=== PATIENT | male | born 1980 | race Caucasian/White ===

== ENCOUNTER 2021-01-31 12:57 | Emergency (ER) | payer BC, SELFPAY ==
[2021-01-31 12:58] VITALS: BP 149/79; PULSE 94; RESP 20; TEMP 36.9; O2SAT 99; BMI 41.8
[2021-01-31 13:05] VITALS: BP 149/79; PULSE 94; RESP 20; TEMP 36.9; O2SAT 99; BMI 41.7
--- NOTE | 2021-01-31 13:33 | HMH.EDUTC ---
[facility] [place] Disposition Clinical Impression: Migraine Qualifiers: Migraine type: unspecified Status migrainosus presence: without status migrainosus Intractability: not intractable Qualified Code(s): G43.909 - Migraine, unspecified, not intractable, without status migrainosus Disposition: Home, Self-Care Condition on Discharge: Good Instructions: Migraine -- Adult, DI for Migraine Additional Instructions: Go home and lay down and sleep off remaining of Migraine Headache Follow up with your Family Doctor for further evaluation and medication for Migraine control if needed Return if needed Straight to ER if worse headache of your life or any life threatening symptoms Referrals: Kandi Felix [Primary Care Provider] - As needed Forms: Work/School Release Time of Disposition: 14:26 Medical Decision Making - Nino Inquiry Pt receiving controlled substance: No Nino was queried for this patient: No Vital Signs: 01/31/21 12:58 01/31/21 13:05 01/31/21 14:32 Temperature 98.4 F 98.4 F 98.4 F Temperature Source Oral Oral Pulse Rate 94 H Pulse Rate [Left Radial] 94 H 94 H Respiratory Rate 20 20 20 Blood Pressure 149/79 H Blood Pressure [Right Arm] 149/79 H 149/79 H Blood Pressure Mean [Right Arm] 102 102 Blood Pressure Source [Right Arm] Automatic Cuff Automatic Cuff Blood Pressure Position [Right Arm] Sitting Sitting 02 Sat by Pulse Oximetry 99 99 Oxygen Delivery Method Room Air Room Air Orders (Tests/Meds): ED MEDICATIONS Discontinued Medications Generic Name Dose Route Start Last Admin Trade Name Freq PRN Reason Stop Dose Admin Diphenhydramine HCl 25 mg 01/31/21 13:49 01/31/21 14:05 Diphenhydramine 50mg/Ml Vial IM 01/31/21 13:50 25 mg ONCE ONE Administration Ketorolac Tromethamine 30 mg 01/31/21 13:49 01/31/21 14:05 Ketorolac 60mg/2ml Vial IM 01/31/21 13:50 30 mg ONCE ONE Administration Ondansetron HCl 4 mg 01/31/21 13:49 01/31/21 14:05 Ondansetron 4mg Odt SL 01/31/21 13:50 4 mg ONCE ONE Administration Medical Decision Narrative: Medication discussed with pharmacy Discussed transfer to ED if no improvement for Head CT and Patient states that medication is helping with headache states that feels much better and almost gone Declined transfer and states that he will return if worse headache of his life and/or Follow up with PCP if headache returns Patient no distress laughing and talking with mother as he left [facility] [place] HPI - General Stated complaint: migraine, nausea Time Seen by Provider: 01/31/21 13:33 Mode of Arrival: Ambulatory Source of Information: Patient Limitations: No Limitations Description of Symptoms (Recalled from Triage Doc. by RN): PATIENT C/O HEADACHE WITH NAUSEA SINCE LAST NIGHT HEENT Symptoms (Recalled from RN notes): Yes Resp Symptoms (Recalled from RN notes): No Skin Symptoms (Recalled from RN notes): No MS Symptoms (Recalled from RN notes): No Functional Status (Recalled from RN notes): WNL - History of Present Illness Provider Complaint: Patient states that he has had headaches in the past States last night he started having headache States that he took Ibuprofen and it helped and he laid down and slept States that this morning he woke up and it was back so he took some excedrin around 630 but hasnt helped States that at times it make him feel nauseous States that he still has headache and came in to see if he can get something for it Denies that this is worse headache of life, denies vision changes, and denies numbness - Related Data Allergies Allergy/AdvReac Type Severity Reaction Status Date / Time No Known Allergies Allergy Verified 01/31/21 13:30 - Worker's Comp Is this a Worker's Comp case?: No [facility] History - Hepatitis A Screen Drug use history?: No High risk sexual behaviors?: No History of sexually transmitted infection?: No Currently employed?: No Childcare worker?: No Do you have indoor plumbing?: Yes Do you hav
[2021-01-31 14:32] VITALS: BP 149/79; PULSE 94; RESP 20; TEMP 36.9; O2SAT 99
== END 2021-01-31 14:33 | disposition home or self-care (01) ==
PROVIDERS: Emergency Provider Nurse Practitioner; PCP Nurse Practitioner Family
DX: G43.909 Migraine, unspecified, not intractable, without status migrainosus (principal)
CPT/HCPCS: 96372; 99202; G0463

== ENCOUNTER 2021-09-19 11:58 | Emergency (ER) | payer BC, SELFPAY ==
[2021-09-19 13:20] VITALS: BP 166/111; PULSE 92; RESP 20; TEMP 37; O2SAT 96; BMI 41.3
--- NOTE | 2021-09-19 14:07 | HMH.EDUTC ---
[facility] [place] Disposition Clinical Impression: Tendinopathy of right shoulder Right shoulder pain Qualifiers: Chronicity: acute Qualified Code(s): M25.511 - Pain in right shoulder Disposition: Home, Self-Care Condition on Discharge: Good Instructions: Shoulder Tendinopathy, DI for Shoulder Pain Additional Instructions: Rest the extremity. Go home and rest. It would be best if you rested tomorrow too. Don't start the oral steroids until tomorrow, since you had the shot here today. Follow up with Dr. Perez (orthopedics). I put in a referral but you need to call his office and schedule an appointment. Follow up with your regular doctor. GO TO THE ER FOR ANY WORSENING SYMPTOMS Prescriptions: Cyclobenzaprine HCl [Cyclobenzaprine 10mg Tab] 10 mg PO BIDP PRN #20 tab PRN Reason: Muscle Spasm Transmission Status: Received by [id number] methylPREDNISolone [Medrol] 4 mg PO DIRECTED 6 Days #21 packet Transmission Status: Received by [id number] Referrals: Kandi Felix [Primary Care Provider] - Wm Perez MD [Staff Physician] - Forms: Work/School Release Time of Disposition: 14:18 Medical Decision Making - Medical Records Medical records reviewed: No: I reviewed the patient's medical records. - Nino Inquiry Pt receiving controlled substance: No Vital Signs: 09/19/21 13:20 09/19/21 14:20 Temperature 98.6 F 98.3 F Temperature Source Oral Pulse Rate 90 Pulse Rate [Left Brachial] 92 H Respiratory Rate 20 20 Blood Pressure 138/90 Blood Pressure [Left Arm] 166/111 H Blood Pressure Mean [Left Arm] 129 Blood Pressure Source [Left Arm] Automatic Cuff Blood Pressure Position [Left Arm] Sitting 02 Sat by Pulse Oximetry 96 Oxygen Delivery Method Room Air Orders (Tests/Meds): ED MEDICATIONS Discontinued Medications Generic Name Dose Route Start Last Admin Trade Name Freq PRN Reason Stop Dose Admin Ketorolac Tromethamine 60 mg 09/19/21 14:18 09/19/21 14:20 Ketorolac 60mg/2ml Vial IM 09/19/21 14:19 60 mg ONCE ONE Administration Methylprednisolone Sodium Succinate 125 mg 09/19/21 14:18 09/19/21 14:20 Methylprednisolone Sod Succ 125mg Vial IM 09/19/21 14:19 125 mg ONCE ONE Administration [facility] [place] HPI - General Stated complaint: right shoulder pain, arm ache Time Seen by Provider: 09/19/21 14:07 Mode of Arrival: Ambulatory Source of Information: Patient Limitations: No Limitations Description of Symptoms (Recalled from Triage Doc. by RN): PATIENT C/O RIGHT SHOULDER PAIN THAT RADIATES DOWN ARM WITH OCCASIONAL NUMBNESS TO ARM/HAND X 5-6 DAYS. DESCRIBES PAIN ACHEY, NO KNOWN INJURY HEENT Symptoms (Recalled from RN notes): No Resp Symptoms (Recalled from RN notes): No Skin Symptoms (Recalled from RN notes): No MS Symptoms (Recalled from RN notes): Yes Functional Status (Recalled from RN notes): WNL - History of Present Illness Provider Complaint: He states that for the past 1 week he has had right shoulder pain that is worse when he goes to bed at night. He has had some numbness and tingling of his right hand at times and some elbow pain also. He denies any known injury. He denies any chest pain. - Related Data Previous Rx's Medication Instructions Recorded Cyclobenzaprine HCl 10 mg PO BIDP PRN #20 tab 09/19/21 [Cyclobenzaprine 10mg Tab] methylPREDNISolone [Medrol] 4 mg PO DIRECTED 6 Days #21 09/19/21 packet Allergies Allergy/AdvReac Type Severity Reaction Status Date / Time No Known Allergies Allergy Verified 01/31/21 13:30 - Worker's Comp Is this a Worker's Comp case?: No [facility] History - Hepatitis A Screen Drug use history?: No High risk sexual behaviors?: No History of sexually transmitted infection?: No Currently employed?: No Childcare worker?: No Do you have indoor plumbing?: Yes Do you have electricity?: Yes Attestation statement:: This patient has been screened for Hepatitis A risk factors.
[2021-09-19 14:20] VITALS: BP 138/90; PULSE 90; RESP 20; TEMP 36.8; O2SAT 96
== END 2021-09-19 14:36 | disposition home or self-care (01) ==
PROVIDERS: Emergency Provider Nurse Practitioner Family; PCP Nurse Practitioner Family
DX: M67.911 Unspecified disorder of synovium and tendon, right shoulder (principal)
CPT/HCPCS: 96372; 99202; G0463

== ENCOUNTER 2021-10-30 17:00 | Outpatient (RCR) | payer BC, SELFPAY | END 2021-11-27 09:16 | disposition home or self-care (01) | LOC: PT.CARL 17:00 | PROVIDERS: PCP Nurse Practitioner Family; Visit Provider Nurse Practitioner | DX: M25.511 Pain in right shoulder (principal) | CPT/HCPCS: 97010; 97012; 97014; 97110; 97140; 97163; G0283 ==

== ENCOUNTER 2022-10-08 10:20 | Emergency (ER) | payer BC, SELFPAY ==
--- NOTE | 2022-10-08 11:40 | EXP.UTC ---
Discharge Plan Disposition Patient Disposition: Home, Self-Care Condition: Good Prescriptions Prescriptions: New amoxicillin [amoxicillin] 875 mg tablet 875 mg PO Q12H Qty: 20 0RF benzonatate [benzonatate] 100 mg capsule 100 mg PO TIDP PRN (Reason: Cough) Qty: 30 0RF methylprednisolone 4 mg Tablets,Dose Pack 4 mg PO DIRECTED Qty: 21 0RF No Action cyclobenzaprine 10 MG tablet 10 mg PO BIDP PRN (Reason: Muscle Spasm) Qty: 20 0RF methylprednisolone 4 MG tablets,dose pack 4 mg PO DIRECTED 6 Days Qty: 21 0RF Referrals Follow up/Referrals: Kandi Felix [Primary Care Provider] - See instructions Activity Restrictions/Add. Instructions Additional Instructions/Restrictions: Drink plenty of fluids. Take tylenol or ibuprofen for pain or fever. Take the medications as directed. Follow up with your regular doctor. GO TO THE ER FOR ANY WORSENING SYMPTOMS Clinical Impressions Clinical Impression: Strep throat Stand Alone Forms Stand Alone Forms: Work/School Release Instructions Patient Instructions: Strep Throat, DI for Strep Throat Discharge ED Provider: Timothy Adkins [facility] General Stated complaint: possible strep Time Seen by Provider: 10/08/22 11:39 History of Present Illness Provider Complaint: He has had a sore throat since yesterday. Both his and his daughter tested positive for strep throat this morning. Related Data Previous Rx's Medication Instructions Recorded cyclobenzaprine 10 mg tablet 10 mg PO BIDP PRN Muscle Spasm #20 09/19/21 tabs methylprednisolone 4 mg tablets in 4 mg PO DIRECTED 6 days #21 09/19/21 a dose pack packets amoxicillin 875 mg tablet 875 mg PO Q12H #20 tabs 10/08/22 benzonatate 100 mg capsule 100 mg PO TIDP PRN Cough #30 caps 10/08/22 methylprednisolone 4 mg tablets in 4 mg PO DIRECTED #21 tabs 10/08/22 a dose pack Allergies Allergy/AdvReac Type Severity Reaction Status Date / Time No Known Allergies Allergy Verified 10/08/22 12:05 [facility] Social History Smoking Status: Never smoker alcohol intake: never current occupational status: other Travel in the last 8 weeks: None ROS Obtained: Yes All systems reviewed & no additional complaints except as documented Constitutional Constitutional: Reports chills and Reports fever(s) Eyes Eyes: Denies eye discharge ENT Ears, Nose, Mouth, and Throat: Reports as per HPI Cardiovascular Cardiovascular: Denies chest pain Respiratory Respiratory: Denies chest congestion and Reports cough Gastrointestinal Gastrointestingal: Reports nausea; Denies abdominal pain, constipation, cramping, diarrhea or vomiting Musculoskeletal Musculoskeletal: Denies arthralgias Integumentary/Breasts Skin/Breast: Denies rash Neurologic Neurologic: Denies paresthesias Physical Exam General General appearance: alert and in no apparent distress Head Head exam: atraumatic, normocephalic and normal inspection Eye Eye exam: Present normal appearance, PERRL and EOMI ENT ENT exam: Present mucous membranes moist and normal external ear exam Expanded ENT Exam TM/Canal exam: Bilateral TM: erythema and bulging Nose exam: Absent sinus tenderness Mouth exam: Present normal external inspection; Absent drooling Teeth exam: Present normal inspection Throat exam: Present tonsillar erythema, tonsillomegaly and tonsillar exudate Neck Neck exam: Present normal inspection, full ROM and trachea midline; Absent tenderness, meningismus or lymphadenopathy Chest Chest inspection: Present normal inspection and symmetric chest wall rise; Absent tenderness Respiratory Respiratory exam: Present normal lung sounds bilaterally; Absent respiratory distress, wheezes or stridor Cardiovascular Cardiovascular exam: Present regular rate and normal rhythm; Absent systolic murmur or diastolic murmur Abdominal Exam Abdominal exam: Present soft and normal bowel
[2022-10-08 11:55] LABS: UTC Strep Screen (Rapid) Positive (Negative)
[2022-10-08 11:56] LABS: UTC Influenza A Antigen Negative (Negative); UTC Influenza B Antigen Negative (Negative)
[2022-10-08 12:01] VITALS: BP 131/86; PULSE 102; RESP 18; TEMP 37.2; O2SAT 99; BMI 40.6
[2022-10-08 12:05] VITALS: BP 131/86; PULSE 102; RESP 18; TEMP 37.2
== END 2022-10-08 12:06 | disposition home or self-care (01) ==
PROVIDERS: Emergency Provider Nurse Practitioner Family; PCP Nurse Practitioner Family
DX: J02.0 Streptococcal pharyngitis (principal)
CPT/HCPCS: 87804; 87880; 99212; G0463

== ENCOUNTER 2023-11-11 16:36 | Emergency (ER) | payer OTHER, SELFPAY ==
[2023-11-11 17:35] VITALS: BP 138/87; PULSE 94; RESP 18; TEMP 37.6; O2SAT 97; BMI 38.6
--- NOTE | 2023-11-11 18:02 | EXP.UTC ---
Discharge Plan Disposition Patient Disposition: Home, Self-Care Condition: Good Prescriptions Prescriptions: New azithromycin 250 mg tablet See Rx Instructions .ROUTE .COMPLEX Qty: 6 0RF Rx Instructions: For 250 mg dose pack: take 500 mg today (day 1), then 250 mg for 4 days (days 2-5) [id number] [Bromfed DM] 2-30-10 mg/5 mL syrup 10 ml PO Q6H PRN (Reason: cold symptoms) Qty: 200 0RF Referrals Follow up/Referrals: Kandi Felix [Primary Care Provider] - See instructions Activity Restrictions/Add. Instructions Additional Instructions/Restrictions: Follow up with PCP if no better in 48 hours. Clinical Impressions Clinical Impression: Influenza due to influenza virus, type B, Acute lower respiratory infection Stand Alone Forms Stand Alone Forms: Work/School Release Instructions Patient Instructions: Acute Bronchitis, DI for Influenza -- Adult Discharge ED Provider: Shanae Marshall [facility] [place] HPI General Stated complaint: congestion, cough, upper respitory, st, adames Mode of Arrival: Ambulatory Source of Information: Patient Limitations: No Limitations Time Seen by Provider: 11/11/23 18:01 Description of Symptoms (Recalled from Triage Doc. by RN): sinus infection, congestion, and ADAMES HEENT Symptoms (Recalled from RN notes): Yes Resp Symptoms (Recalled from RN notes): No Skin Symptoms (Recalled from RN notes): No MS Symptoms (Recalled from RN notes): No Functional Status (Recalled from RN notes): n/a History of Present Illness Provider Complaint: Pt reports that he has had clear sinus drainage, cough, fever, and body aches for the last 2 days. He Related Data Previous Rx's Medication Instructions Recorded azithromycin 250 mg tablet See Rx Instructions PO .COMPLEX #6 11/11/23 tabs rctpsdwiiqosske-jcvufkqjczwpwjv-WJ 10 ml PO Q6H PRN cold symptoms 11/11/23 2 mg-30 mg-10 mg/5 mL oral syrup #200 mL (Bromfed DM) Allergies Allergy/AdvReac Type Severity Reaction Status Date / Time No Known Allergies Allergy Verified 11/11/23 17:33 Worker's Comp Is this a Worker's Comp case?: No [facility] Disclaimer: The information contained in this section may have been updated after the patient was seen, as this information can be updated by other users. Social History Smoking Status: Never smoker alcohol intake: never current occupational status: other Travel in the last 8 weeks: None ROS Obtained: Yes All systems reviewed & no additional complaints except as documented Constitutional Constitutional: Reports system reviewed and no additional complaints, except as documented, Reports body ache, Reports fatigue, Reports fever(s), Reports headache(s) and Reports malaise Eyes Eyes: Reports system reviewed and no additional complaints, except as documented ENT Ears, Nose, Mouth, and Throat: Reports system reviewed and no additional complaints, except as documented, Reports headache(s), Reports nasal congestion, Reports nasal discharge, Reports sinus pressure and Reports sore throat Cardiovascular Cardiovascular: Reports system reviewed and no additional complaints, except as documented Respiratory Respiratory: Reports system reviewed and no additional complaints, except as documented and Reports cough Gastrointestinal Gastrointestingal: Reports system reviewed and no additional complaints, except as documented Genitourinary Male Genitourinary: Reports system reviewed and no additional complaints, except as documented Musculoskeletal Musculoskeletal: Reports system reviewed and no additional complaints, except as documented Integumentary/Breasts Skin/Breast: Reports system reviewed and no additional complaints, except as documented Neurologic Neurologic: Reports system reviewed and no additional complaints, except as documented and Reports headache(s) Endocrine Endocrine: Reports system reviewed and no additional complaints, except a
[2023-11-11 18:24] LABS: UTC Influenza A Antigen Negative (Negative); UTC Influenza B Antigen Positive (Negative)
[2023-11-11 18:49] VITALS: BP 138/87; PULSE 94; RESP 18; TEMP 37.6; O2SAT 97
== END 2023-11-11 18:49 | disposition home or self-care (01) ==
PROVIDERS: Emergency Provider Nurse Practitioner Family; PCP Nurse Practitioner Family
DX: J10.1 Influenza due to other identified influenza virus with other respiratory manifestations (principal); J20.9 Acute bronchitis, unspecified; R51.9 Headache, unspecified; R50.9 Fever, unspecified; R05.9 Cough, unspecified; R09.81 Nasal congestion; R07.0 Pain in throat; M79.18 Myalgia, other site; R53.83 Other fatigue
CPT/HCPCS: 87635; 87804; 99212; 99214; G0463

== ENCOUNTER 2024-01-21 17:51 | Emergency (ER) | payer OTHER, SELFPAY ==
[2024-01-21 18:10] VITALS: BP 125/74; PULSE 120; RESP 21; TEMP 37.5; O2SAT 96; BMI 38.0
[2024-01-21 18:12] VITALS: BMI 38.0
--- NOTE | 2024-01-21 18:12 | XR_ITS ---
PROCEDURE INFORMATION: Exam: XR Chest Exam date and time: 01/21/2024 6:05 PM Age: 43 years old Clinical indication: Cough TECHNIQUE: Imaging protocol: Radiologic exam of the chest. Views: 2 views. COMPARISON: No relevant prior studies available. FINDINGS: Lungs: There is a consolidation of the peripheral left lung base which could reflect infection . Pleural spaces: No large effusion or pneumothorax. Heart/Mediastinum: No evidence of mediastinal widening or cardiac silhouette enlargement; the mediastinum and heart appear within normal limits for contour and size. Bones/joints: No evidence of acute osseous abnormalities within the visualized portions of the thoracic spine and ribs. Osseous structures appear appropriate for patient age. IMPRESSION: There is a consolidation of the peripheral left lung base which could reflect infection .
[2024-01-21 18:49] LABS: UTC Influenza A Antigen Negative (Negative); UTC Influenza B Antigen Negative (Negative)
--- NOTE | 2024-01-21 18:58 | ED_ITS ---
Discharge Plan Disposition Patient Disposition: Home, Self-Care Condition: Good Prescriptions Prescriptions: No Action promethazine-DM 6.25-15 mg/5 mL syrup 5 ml PO Q4-6H PRN (Reason: cough) Qty: 118 0RF albuterol sulfate 90 mcg/actuation HFA aerosol inhaler 2 puff inhalation Q4-6H PRN (Reason: shortness of breath or wheezing) Qty: 8.5 1RF prednisone 20 mg tablet 20 mg PO BID 5 Days Qty: 10 0RF levofloxacin 500 mg tablet 500 mg PO DAILY 7 Days Qty: 7 0RF Referrals Follow up/Referrals: Kandi Felix [Primary Care Provider] - See instructions Activity Restrictions/Add. Instructions Additional Instructions/Restrictions: * Continue antibiotic Be sure to complete entire prescription even if feeling better * Monitor temp. Tylenol every 4 hours as needed and / or ibuprofen every 6 hours as needed ( As long as your primary care physician has told you that it ok to take both. For fever/aches/pains ER if no less than 101 despite Tylenol or Motrin * Humidifier/vaporizer or hot steamy shower * Inhaler every 4-6 hours as needed like we discussed. If unsure how to use it, ask pharmacist to demonstrate how. Should help open airways and improve cough, wheezing, and shortness of breath * Mucinex during the day for your cough and cough suppressant only at night. Be sure to drink lots of water. Insurance may not cover a prescriptions for mucinex. Might be cheaper to get 400mg tablets and take 2 tablet in the morning, mid-day and evening with lots of water. *Promethazine DM cough syrup will cause drowsiness. Use only at night. No driving, operating machinery or caring for small children after taking it *Continue steroid. Helps with inflammation therefore, cough and wheezing. Follow directions on the package. Reviewed side effects. Patient reports taking them before. Follow up IMMEDIATELY for new or worsening of symptoms OR no noticeable improvement over the next 48-72 hours. 911 immediately for any life threatening symptoms such as chest pain or difficulty breathing Clinical Impressions Clinical Impression: Acute lower respiratory infection Stand Alone Forms Stand Alone Forms: Work/School Release Instructions Patient Instructions: Pneumonia-Adult, Cough, DI for Pneumonia -- Adult Discharge ED Provider: Alejandrina Suresh [facility] [place] General Stated complaint: sent by yusef Sanchez pneumonia Mode of Arrival: Ambulatory Source of Information: Patient Limitations: No Limitations Time Seen by Provider: 01/21/24 19:02 Description of Symptoms (Recalled from Triage Doc. by RN): Pt was seen by Cora Franklin and is being treated for pneumonia. Pt's symptoms are chest congestion, fever, body aches, and feels hard to take a deep breath. (RA o2 was 96%) HEENT Symptoms (Recalled from RN notes): Yes Resp Symptoms (Recalled from RN notes): No Skin Symptoms (Recalled from RN notes): No MS Symptoms (Recalled from RN notes): No Functional Status (Recalled from RN notes): n/a History of Present Illness Provider Complaint: Patient states that he was seen earlier today in [facility] [address] and this morning and was seen and treated for Pneumonia States that he has been taking his medication and he has still continued to have chills, fever, feeling hot and flush at times and hurts when he takes a deep breath States that he spoke with the physician staff sonographer and they said for him to come in and get a Respiratory Panel done since he was concerned with flu and COVID 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 they sent in for him and started it at home Related Data Previous Rx's Medication Instructions Recorded albuterol sulfate 90 mcg/actuation 2 puff inhalation Q4-6H PRN 01/21/24 aerosol inhaler shortness of breath or wheezing #8.5 grams levofloxacin 500 mg tablet 500 mg PO DAILY 7 days #7 tabs 01/21/24 prednisone 20 mg tablet 20 mg PO BID 5 days #10 tabs 01/21/24 promethazine-DM 6.25 mg-15 mg/5 mL 5 ml PO Q4-6H PRN cough #118 mL 01/21/24 oral syrup Allergies Allergy/AdvReac Type Severity Reaction Status Date / Time No Known Allergies Allergy Verified 01/21/24 18:30 Worker's Comp Is this a Worker's Comp case?: No [facility] Disclaimer: The information contained in this section may have been updated after the patient was seen, as this information can be updated by other users. Medical History (Updated 01/21/24 @ 19:23 by Alejandrina Suresh APRN) Influenza due to influenza virus, type B Migraine Right shoulder pain Strep throat Tendinopathy of right shoulder Surgical History No significant past surgical history Social History Smoking Status: Never smoker alcohol intake: never current occupational status: other Travel in the last 8 weeks: None ROS Obtained: Yes All systems reviewed & no additional complaints except as documented and Yes Systems reviewed as appropriate & no additional complaints except as documented Constitutional Constitutional: Reports system reviewed and no additional complaints, except as documented and Reports as per HPI ENT Ears, Nose, Mouth, and Throat: Reports system reviewed and no additional complaints, except as documented and Reports as per HPI Cardiovascular Cardiovascular: Reports system reviewed and no additional complaints, except as documented and Reports as per HPI Respiratory Respiratory: Reports system reviewed and no additional complaints, except as documented, Reports as per HPI, Reports shortness of breath (at times with cou ghing), Reports chest congestion, Reports pain on inspiration and Reports pain with cough Gastrointestinal Gastrointestingal: Reports system reviewed and no additional complaints, except as documented and as per HPI Physical Exam General General appearance: alert and in no apparent distress ENT ENT exam: Present mucous membranes moist Respiratory Respiratory exam: Present normal lung sounds bilaterally and wheezes (mild scattered ); Absent respiratory distress Cardiovascular Cardiovascular exam: Present regular rate, normal rhythm and tachycardia Neurological Exam Neurological exam: Present alert, oriented X3 and normal gait Medical Decision Making Nino Inquiry Pt receiving controlled substance: No Nino was queried for this patient: No Vital Signs: 01/21/24 18:10 Temperature 99.5 F Temperature Source Oral Pulse Rate [Right Radial] 120 H Respiratory Rate 21 Blood Pressure [Right Arm] 125/74 Blood Pressure Mean [Right Arm] 91 Blood Pressure Source [Right Arm] Automatic Cuff Blood Pressure Position [Right Arm] Sitting 02 Sat by Pulse Oximetry 96 Oxygen Delivery Method Room Air Lab Data Lab results reviewed: Yes I reviewed the patient's lab results. Lab Results 01/21/24 18:26: Influenza Type A Ag Negative, Influenza Type B Ag Negative Orders (Tests/Meds): ORDERS Category Date Time Status Chest XR 2 view (NOT portable) [XR chest 2V] Stat Exams 01/21/24 18:12 Completed Radiology Data #1: IMPRESSION: There is a consolidation of the peripheral left lung base which could reflect infection . Medical Decision Narrative: Patient denies any worsening of SOA states that he has started his prescribed medication and has been taking it today wanting an URP and note for Work Discussed with patient that he got injection of steriods this am at the clinic and also started his oral prednisone that prednisone can make him feel hot and flushed Discussed patient with Physican staff sonographer for clinic and informed them of findings and patient will be dc'd home to wait on URP results and given strict return precautions to the Emergency room
[2024-01-21 19:29] VITALS: BP 125/74; PULSE 120; RESP 21; TEMP 37.5; O2SAT 96
[2024-01-21 19:38] LABS: Adenovirus,PCR Not Detected (NotDetected); Coronavirus 19, PCR Not Detected (NotDetected); Coronavirus 229E Not Detected (NotDetected); Coronavirus NL63 Not Detected (NotDetected); Coronovirus HKU1,PCR Not Detected (NotDetected); Human Metapneumovirus Not Detected (NotDetected); Influenza A, PCR Not Detected (NotDetected); Influenza AH1, 2009 Not Detected (NotDetected); Influenza AH1, PCR Not Detected (NotDetected); Influenza AH3,PCR Not Detected (NotDetected); Influenza B, PCR Not Detected (NotDetected); Parainfluenza 1, PCR Not Detected (NotDetected); Parainfluenza 2, PCR Not Detected (NotDetected); Parainfluenza 3, PCR Not Detected (NotDetected); Parainfluenza 4, PCR Not Detected (NotDetected); Respiratory Syncytial Virus Not Detected (NotDetected); Rhinovirus/Enterovirus Not Detected (NotDetected)
[2024-01-22 05:06] LABS: Coronavirus OC43 Detected (NotDetected)
== END 2024-01-21 19:28 | disposition home or self-care (01) ==
PROVIDERS: Emergency Provider Nurse Practitioner; PCP Nurse Practitioner Family
DX: J22 Unspecified acute lower respiratory infection (principal); B34.2 Coronavirus infection, unspecified; R07.1 Chest pain on breathing; R06.02 Shortness of breath; R50.9 Fever, unspecified
CPT/HCPCS: 71046; 87581; 87632; 87635; 87798; 87804; 99212; 99214; G0463

== ENCOUNTER 2024-01-26 15:59 | Emergency (ER) | payer OTHER, SELFPAY ==
[2024-01-26 16:00] VITALS: BP 146/92; PULSE 107; RESP 22; TEMP 37.1; O2SAT 98; BMI 37.3
--- NOTE | 2024-01-26 16:15 | PC.NURSE ---
DR MARTINEZ AT BEDSIDE
--- NOTE | 2024-01-26 16:21 | CT_ITS ---
PROCEDURE INFORMATION: Exam: CTA Chest With Contrast Exam date and time: 01/26/2024 5:08 PM Age: 43 years old Clinical indication: Pain; Left-sided; Additional info: Left chest wall pleuritic cp TECHNIQUE: Imaging protocol: Computed tomographic angiography of the chest with contrast. Exam focused on the arteries. 3D rendering (Not supervised by radiologist): MIP and/or 3D reconstructed images were created by the technologist. Radiation optimization: All CT scans at this facility use at least one of these dose optimization techniques: automated exposure control; mA and/or kV adjustment per patient size (includes targeted exams where dose is matched to clinical indication); or iterative reconstruction. Contrast material: ISOVUE 370; Contrast volume: 70 ml; Contrast route: INTRAVENOUS (IV); COMPARISON: CR XR CHEST 2V 01/21/2024 6:05 PM FINDINGS: Pulmonary arteries: There is fair opacification of the pulmonary arterial tree. No central pulmonary arterial filling defect is seen. Aorta: Unremarkable. No aortic aneurysm. No aortic dissection. Other arteries: Subsegmental vessels are not well evaluated due to technical factors. Lungs: Unremarkable. No consolidation. No masses. Pleural spaces: Unremarkable. No pneumothorax. No pleural effusion. Heart: Unremarkable. No cardiomegaly. No pericardial effusion. Lymph nodes: There are calcified mediastinal lymph nodes likely reflecting prior granulomatous disease. There are mildly prominent mediastinal lymph nodes which are nonenlarged. Gallbladder and bile ducts: The patient is status post cholecystectomy. Bones/joints: Unremarkable. No acute fracture. Soft tissues: Unremarkable. Other findings: Motion artifact mildly limits evaluation. IMPRESSION: 1. No central pulmonary arterial filling defect is seen. Subsegmental vessels are not well evaluated due to technical factors. 2. No dense parenchymal consolidation, pleural effusion, or pneumothorax.
--- NOTE | 2024-01-26 16:23 | HMH.EDCP ---
Discharge Plan Disposition Patient Disposition: Home, Self-Care Prescriptions Prescriptions: New cyclobenzaprine 10 mg tablet 10 mg PO TID PRN (Reason: muscle spasm) 5 Days Qty: 15 0RF ibuprofen 800 mg tablet 800 mg PO TID PRN (Reason: pain) 7 Days Qty: 20 0RF benzonatate 100 mg capsule 100 mg PO TID PRN (Reason: cough) 5 Days Qty: 20 0RF No Action promethazine-DM 6.25-15 mg/5 mL syrup 5 ml PO Q4-6H PRN (Reason: cough) Qty: 118 0RF albuterol sulfate 90 mcg/actuation HFA aerosol inhaler 2 puff inhalation Q4-6H PRN (Reason: shortness of breath or wheezing) Qty: 8.5 1RF prednisone 20 mg tablet 20 mg PO BID 5 Days Qty: 10 0RF levofloxacin 500 mg tablet 500 mg PO DAILY 7 Days Qty: 7 0RF Referrals Follow up/Referrals: Kandi Felix [Primary Care Provider] - See instructions Archana Castillo MD [Physician] - See instructions Activity Restrictions/Add. Instructions Additional Instructions/Restrictions: No evidence of pneumonia on your CT scan. As discussed it is strongly recommended that you stop smoking. Your symptoms are most likely consistent with musculoskeletal chest wall strain in the setting of cough. Muscle laxer anti-inflammatory medication have been prescribed in addition to another cough medicine. You may also take [id number] Sudafed and chlorpheniramine as needed for cough. Clinical Impressions Clinical Impression: Encounter for smoking cessation counseling, Acute exacerbation of chronic obstructive airways disease, Coronavirus infection, Chest wall muscle strain Discharge ED Provider: Karlie Grissom [facility] General Chief Complaint: Shortness of Breath/Dyspnea Stated Complaint: soa pnenomnia positive cough Time Seen by Provider: 01/26/24 16:11 Mode of Arrival: Family Vehicle Source of Information: Patient Limitations: No Limitations Description of Symptoms (Recalled from ER Triage Doc. by RN): Pt c/o SOA, productive cough, sore throat, and left lower rib pain with cough and movement. States he was seen last week by [facility] [place] and dx with possible pneumonia and started on ABX, cough syrup, steriod, and albuterol inhaler. States he was still feeling poor and came to [facility] the following day, had chest xray and told he had pneumonia. Pt states he just feels he is worsening and is feeling significant pain with inspiration and with cough & movement. History of Present Illness HPI narrative: Patient is a 43-year-old male presents today with persistent symptoms after 2 other physician visits prior today. States he started having symptoms 8 days ago when he started having sinus congestion and a little bit of a cough. Has a chronic history of smoking but no history of COPD. States by Friday he started feeling poorly went to his primary care doctor they started him on Levaquin and prednisone and albuterol and has been on that since that day started feeling worse that evening with a fever of 100.7 had comprehensive respiratory viral panel had a chest x-ray there was concern for possible left peripheral pneumonia he was already on Levaquin he has since completed that. States he is only getting worse with worsening left-sided chest discomfort particular with coughing or movement or touch. Denies any ongoing fevers. No lower extremity swelling hemoptysis history of DVT or PE or prolonged immobilizations. Patient continues to smoke even during this illness. He was positive for negative coronavirus several days ago. Related Data Previous Rx's Medication Instructions Recorded albuterol sulfate 90 mcg/actuation 2 puff inhalation Q4-6H PRN 01/21/24 aerosol inhaler shortness of breath or wheezing #8.5 grams levofloxacin 500 mg tablet 500 mg PO DAILY 7 days #7 tabs 01/21/24 prednisone 20 mg tablet 20 mg PO BID 5 days #10 tabs 01/21/24 promethazine-DM 6.25 mg-15 mg/5 mL 5 ml PO Q4-6H PRN cough #118 mL 01/21/24 oral syrup benzonatate 100 mg capsule 100 mg PO TID PRN cough 5 days #20 01/26/24 caps cyclobenzaprine 10 mg tablet 10 mg PO TID PRN muscle spasm 5 01/26/24 days #15 tabs ibuprofen 800 mg tablet 800 mg PO TID PRN pain 7 days #20 01/26/24 tabs Allergies Allergy/AdvReac Type Severity Reaction Status Date / Time No Known Allergies Allergy Verified 01/21/24 18:30 [facility] Disclaimer: The information contained in this section may have been updated after the patient was seen, as this information can be updated by other users. Medical History (Updated 01/26/24 @ 18:24 by Karlie Grissom MD) Influenza due to influenza virus, type B Migraine Right shoulder pain Strep throat Tendinopathy of right shoulder Surgical History No significant past surgical history Social History Smoking Status: Current every day smoker alcohol intake: never current occupational status: other Travel in the last 8 weeks: None ROS Obtained: Yes All systems reviewed & no additional complaints except as documented Physical Exam General General appearance: alert Respiratory Respiratory exam: Present other (Diffuse expiratory wheezing mild prolonged expiratory phase oxygen saturations normal on room air) Cardiovascular Cardiovascular exam: Present tachycardia (Heart rate 1 10-1 20 my evaluation) Neurological Exam Neurological exam: Present alert HEART Score HEART Score HEART Score assessment performed?: Yes History (anamnesis): Slightly suspicious ECG: Normal Age: 45-65 years Risk factors: 1-2 risk factors Troponin: </= normal limit HEART Score: 2 Critical Care Critical Care Time Critical Care Time: No Medical Decision Making Nino Inquiry Pt receiving controlled substance: No Vital Signs Vital Signs: 01/26/24 16:00 01/26/24 16:30 01/26/24 17:00 Temperature 98.8 F Temperature Source Oral Pulse Rate 105 H 103 H Pulse Rate [Left] 107 H Respiratory Rate 22 20 20 Blood Pressure 132/85 140/93 H Blood Pressure [Right Arm] 146/92 H Blood Pressure Mean 104 103 Blood Pressure Mean [Right Arm] 110 Blood Pressure Source [Right Arm] Automatic Cuff 02 Sat by Pulse Oximetry 98 97 96 Oxygen Delivery Method Room Air 01/26/24 18:27 Temperature 98.0 F Temperature Source Pulse Rate 85 Pulse Rate [Left] Respiratory Rate 20 Blood Pressure 135/87 Blood Pressure [Right Arm] Blood Pressure Mean Blood Pressure Mean [Right Arm] Blood Pressure Source [Right Arm] 02 Sat by Pulse Oximetry Oxygen Delivery Method Room Air Lab Data Lab results reviewed: Yes I reviewed the patient's lab results. Labs: Lab Results 01/26/24 16:20: WBC 20.4 H*, RBC 5.20, Hgb 16.2, Hct 49.3, MCV 94.7 H, MCH 31.2, MCHC 32.9, RDW 13.4, Plt Count 284, MPV 9.0, Neut % (Auto) 80.7 H, Lymph % (Auto) 13.1, [place] % (Auto) 4.4, Eos % (Auto) 1.4, Baso % (Auto) 0.4, Neut # (Auto) 16.4 H, Lymph # (Auto) 2.7, [place] # (Auto) 0.9, Eos # (Auto) 0.3, Baso # (Auto) 0.1, Total Counted 100, Neutrophils % (Manual) 81 H, Lymphocytes % (Manual) 17, Monocytes % (Manual) 2, Platelet Estimate Normal, RBC Morphology Normal, Sodium 139, Potassium 4.1, Chloride 104, Carbon Dioxide 28, Anion Gap 11.1, BUN 12, Creatinine 1.00, Estimated Creat Clear 165, Estimated GFR 81, Est GFR ( Amer) 98, Glucose 159 H, Calcium 8.9, Total Bilirubin 0.5, AST 66 H, ALT 117 H, Alkaline Phosphatase 85, Troponin I < 0.01, NT-Pro-B Natriuret Pep < 20.0, Total Protein 6.9, Albumin 4.2, Globulin 2.7, Albumin/Globulin Ratio 1.6 01/26/24 18:00: Urine Color Yellow, Urine Appearance Clear, Urine pH 6.0, Ur Specific [place] >= 1.030, Urine Protein Negative, Urine Glucose (UA) Negative, Urine Ketones Negative, Urine Blood Negative, Urine Nitrate Negative, Urine Bilirubin 1+ A, Urine Urobilinogen 0.2, Ur Leukocyte Esterase Negative 01/26/24 16:20 01/26/24 16:20 Response Orders (Tests/Meds): ED MEDICATIONS Discontinued Medications Generic Name Dose Route Start Last Admin Trade Name Freq PRN Reason Stop Dose Admin Albuterol/Ipratropium 3 ml 01/26/24 16:21 01/26/24 16:33 Ipratropium/Albuterol 3 Ml Neb IH 01/26/24 16:22 3 ml ONCE ONE Administration Dexamethasone Sodium Phosphate 10 mg 01/26/24 16:21 01/26/24 16:33 Dexamethasone 4mg/Ml 1ml Vial IV 01/26/24 16:22 10 mg ONCE ONE Administration Lactated Ringer's 1,000 mls @ 999 mls/hr 01/26/24 16:30 01/26/24 16:33 Lactated Ringer's 1000 Ml Bag IV 01/26/24 17:30 999 mls/hr .Q1H1M DEDRICK Administration Iopamidol 70 ml 01/26/24 17:15 01/26/24 17:16 Iopamidol-370 (76%);100ml Bottle IV 01/26/24 17:16 70 ml ONCE ONE Administration Ketorolac Tromethamine 15 mg 01/26/24 16:21 01/26/24 16:33 Ketorolac 30mg/Ml Vial IV 01/26/24 16:22 15 mg ONCE ONE Administration Sodium Chloride 10 ml 01/26/24 17:15 01/26/24 17:16 Sodium Chloride 0.9% 10ml Syr (Rad Only) IV 01/26/24 17:16 10 ml ONCE ONE Administration Sodium Chloride 50 ml 01/26/24 17:15 01/26/24 17:16 0.9 % Sodium Chloride 50 Ml Vial IV 01/26/24 17:16 50 ml ONCE ONE Administration ORDERS Category Date Time Status CT angio chest PE protocol Stat Cat Scan 01/26/24 16:21 Completed BNP [Brain Natriuretic Peptide] Stat Lab 01/26/24 16:20 Completed CBC w/Auto Diff [Complete Blood Count Auto Diff] Stat Lab 01/26/24 16:20 Completed CMP [Comprehensive Metabolic Panel] Stat Lab 01/26/24 16:20 Completed Trop I [Troponin I] Stat Lab 01/26/24 16:20 Completed Troponin I Q3H Lab 01/26/24 19:30 Ordered Troponin I Q3H Lab 01/26/24 22:30 Ordered UA [Urinalysis and Microscopic] Stat Lab 01/26/24 18:00 Results ECG Data Tracing #1: Attestation: I reviewed this ECG and interpreted as documented below: ECG Narrative: Ventricular rate of 103 sinus tachycardia no acute ischemic changes noted no significant conduction abnormalities there is normal axis MDM Narrative Medical Decision Narrative: Patient is a 43-year-old male presents today with left lateral thoracic wall pain after recent diagnosis of possible pneumonia and negative coronavirus diagnosis. I suspect he is having ongoing and worsening refractory symptoms due to his continued smoking. However differential includes worsening pneumonia failure of outpatient therapy malignancy pulmonary embolism etc. Given the fact that this is his third visit for this illness will escalate workup with labs will include a CT PE to further evaluate the above differential. Toradol DuoNeb steroids and IV fluids have been administered. Will reassess after this workup is complete. Additionally I had an extensive discussion with him about smoking cessation. Reassessment 6:28 PM patient's vital signs improved. Respiratory exam also improved and pain is improved. CT scan performed which I first interpreted shows no acute cardiopulmonary emergency specifically no evidence of pneumonia pulmonary embolism broken ribs etc. His symptoms at this point are most likely musculoskeletal in relation to his chronic coughing. I have prescribed him another cough medicine anti-inflammatory medication and muscle relaxers and advised to also take Sudafed and chlorpheniramine in addition to his smoking cessation. He has been advised to return with any worsening symptoms and discharged in improved and stable condition.
[2024-01-26 16:30] VITALS: BP 132/85; PULSE 105; RESP 20; O2SAT 97
[2024-01-26] MEDS: KETOROLAC 30MG/ML VIAL 15 MG IV (16:33)
[2024-01-26] MEDS: DEXAMETHASONE 4MG/ML 1ML VIAL 10 MG IV (16:33)
[2024-01-26] MEDS: IPRATROPIUM/ALBUTEROL 3 ML NEB IH (16:33)
[2024-01-26] MEDS: LACTATED RINGERS 1000ML 1,000 ML 999 ML IV (16:33)
[2024-01-26 16:41] LABS: Basophils # 0.1 K/mm3 (0-0.2); Basophils % 0.4 % (0.1-2.0); Eosinophils # 0.3 K/mm3 (0.0-0.4); Eosinophils % 1.4 % (0.1-12.0); Hematocrit 49.3 % (42.0-52.0); Hemoglobin 16.2 g/dL (14.1-18.0); Lymphocytes # 2.7 K/mm3 (0.7-4.5); Lymphocytes % 13.1 % (10-50); Mean Corpuscular HGB Conc 32.9 g/dL (31.8-35.4); Mean Corpuscular Hemoglobin 31.2 pg (27.0-31.2); Mean Corpuscular Volume 94.7 fl (80-94); Monocytes # 0.9 K/mm3 (0.1-1.0); Monocytes % 4.4 % (1.7-9.3); Neutrophils # 16.4 K/mm3 (1.8-7.8); Neutrophils % 80.7 % (37.0-80.0); Platelet Count 284 K/mm3 (142-424); Red Cell Distribution Width 13.4 % (11.5-17.5); White Blood Count 20.4 K/mm3 (4.8-10.8)
[2024-01-26 16:49] LABS: Alanine Aminotransferase 117 U/L (12-78); Albumin Level 4.2 g/dl (3.5-5.0); Albumin/Globulin Ratio 1.6 (1.1-1.8); Alkaline Phosphatase 85 U/L (38-126); Anion Gap 11.1 mEq/L (5-15); Aspartate Amino Transferase 66 U/L (17-59); Bilirubin,Total 0.5 mg/dl (0.2-1.3); Blood Urea Nitrogen 12 mg/dl (9-20); Calcium 8.9 mg/dl (8.4-10.2); Carbon Dioxide 28 mmol/L (22.0-30.0); Chloride 104 mmol/L (98-107); Creatinine Clearance Estimated 165 mL/min (50-200); Estimated Glomerular Filt Rate 81 ml/min (>60); GFR (African American) 98 ML/MIN (>60); Globulin 2.7 g/dL (1.3-3.2); Glucose 159 mg/dl (74-100); MANUAL DIFFERENTIAL MANUAL DIFFERENTIAL (MANUAL DIFF); Potassium 4.1 mmoL/L (3.5-5.1); Sodium 139 mmol/L (136-145); Total Protein,Serum 6.9 g/dl (6.3-8.2)
[2024-01-26 17:00] VITALS: BP 140/93; PULSE 103; RESP 20; O2SAT 96
[2024-01-26 17:00] LABS: NT Pro Brain Natriuretic Pep. < 20.0 pg/mL (0-125); Troponin I < 0.01 ng/ml (0.00-0.034)
--- NOTE | 2024-01-26 17:02 | ECG_ITS ---
APPROVED REPORT Exam: Resting ECG HR:103 bpm ECG Measurements Heart Rate 103 AXES MO 136 P 46 QRSd 92 QRS 58 QT 323 T -11 QTc 383 Conclusion SINUS TACHYCARDIA NONSPECIFIC T-WAVE ABNORMALITY ABNORMAL ECG UNCONFIRMED REPORT Electronically signed by : SHAISTA ELLINGTON, 01/27/2024 07:11:41
--- NOTE | 2024-01-26 17:03 | PC.NURSE ---
PT TO CT
[2024-01-26] MEDS: 0.9 % SODIUM CHLORIDE 50 ML VIAL IV (17:16)
[2024-01-26] MEDS: IOPAMIDOL-370 (76%);100ML BOTTLE 70 ML IV (17:16)
[2024-01-26] MEDS: SODIUM CHLORIDE 0.9% 10ML SYR (RAD ONLY) 10 ML IV (17:16)
[2024-01-26 17:30] VITALS: BP 130/73; PULSE 105; RESP 20; O2SAT 95
[2024-01-26 17:34] LABS: Lymphocytes % 17 % (10-50); Monocytes % 2 % (2-9); Neutrophils % 81 % (42-76); Total Cells Counted 100
[2024-01-26 17:35] LABS: Platelet Estimate Normal; RBC Morphology Normal
[2024-01-26 18:01] VITALS: BP 139/84; PULSE 94; RESP 20; O2SAT 96
--- NOTE | 2024-01-26 18:02 | PC.NURSE ---
dr dutton at bedside
[2024-01-26 18:12] LABS: Microscopic, Urine URINE MICROSCOPIC (MICROSCOPIC)
[2024-01-26 18:14] LABS: Appearance,Urine CLEAR (Clear); Blood, Urine Negative (Negative); Color,Urine YELLOW (Yellow); Glucose,Urine (UA) Negative (Negative); Ketones,Urine Negative (Negative); Leukocyte Esterase,Urine Negative (Negative); Nitrate,Urine Negative (Negative); Protein,Urine Negative (Negative); Specific Gravity, Urine >= 1.030 (1.005-1.030); Urobilinogen,Urine 0.2 EU/dl (0.2)
[2024-01-26 18:15] LABS: Bilirubin,Urine 1+ (Negative)
[2024-01-26 18:27] VITALS: BP 135/87; PULSE 85; RESP 20; TEMP 36.7; O2SAT 98
[2024-01-26 18:34] LABS: RBC,Urine Occasional #/hpf (0-3)
== END 2024-01-26 18:34 | disposition home or self-care (01) ==
PROVIDERS: Emergency Provider Student in an Organized Health Care Education/Training Program; PCP Nurse Practitioner Family
DX: U07.1 COVID-19 (principal); J44.1 Chronic obstructive pulmonary disease with (acute) exacerbation; F17.210 Nicotine dependence, cigarettes, uncomplicated; R00.0 Tachycardia, unspecified; R07.89 Other chest pain; M54.6 Pain in thoracic spine; D72.829 Elevated white blood cell count, unspecified; Z71.6 Tobacco abuse counseling
CPT/HCPCS: 71275; 80053; 81001; 83880; 84484; 85007; 85025; 93005; 96361; 96374; 96375; 99285; Q9967

== ENCOUNTER 2024-09-23 22:47 | Emergency (ER) | payer OTHER, SELFPAY ==
[2024-09-23 22:49] VITALS: BP 142/76; PULSE 132; RESP 17; TEMP 37; O2SAT 97; BMI 37.3
--- NOTE | 2024-09-23 23:20 | XR_ITS ---
PROCEDURE INFORMATION: Exam: XR Chest Exam date and time: 09/23/2024 11:19 PM Age: 44 years old Clinical indication: Cough and fever; Additional info: Cough, fever TECHNIQUE: Imaging protocol: Radiologic exam of the chest. Views: 2 views. Total images: 2 COMPARISON: CT ANGIO CHEST PE PROTOCOL 01/26/2024 5:08 PM FINDINGS: Lungs: Fine linear left basilar atelectasis/scarring. No consolidation. No pulmonary vascular congestion or edema. Pleural spaces: Unremarkable. No pleural effusion. No pneumothorax. Heart/Mediastinum: Unremarkable. No cardiomegaly. No mediastinal widening or hilar enlargement. Bones/joints: Mild degenerative changes thoracic spine. IMPRESSION: No radiographically acute cardiopulmonary process.
--- NOTE | 2024-09-23 23:20 | HMH.EDGENADL ---
Discharge Plan Disposition Patient Disposition: Home, Self-Care Prescriptions Prescriptions: No Action No Known Home Medications Referrals Follow up/Referrals: Kandi eFlix [Primary Care Provider] - See instructions Activity Restrictions/Add. Instructions Additional Instructions/Restrictions: Please follow-up with your primary care provider. Please return to the emergency department if you develop any new or worsening symptoms or become concerned for your health. Clinical Impressions Clinical Impression: URI, acute, Fever Stand Alone Forms Stand Alone Forms: Work/School Release Print Language Print Language: Jordanian Discharge ED Provider: Michele Lynch General Adult HPI General Chief complaint: Fever Stated complaint: Fever,cough,ADAMES,Congestion Time Seen by Provider: 09/23/24 23:00 History of Present Illness HPI narrative: 44-year-old male, denies any significant past medical history presents for 1 day of cough, congestion, fever, headache. He reports fever of 102 at home. He denies any neurologic changes. Reports cough is nonproductive. Related Data Home Medications ?Medication ?Instructions ?Recorded ?Confirmed No Known Home Medications 09/23/24 09/23/24 Allergies Allergy/AdvReac Type Severity Reaction Status Date / Time No Known Allergies Allergy Verified 09/23/24 23:23 [facility] Disclaimer: The information contained in this section may have been updated after the patient was seen, as this information can be updated by other users. Medical History (Updated 09/24/24 @ 00:30 by Michele Lynch MD) Influenza due to influenza virus, type B Strep throat Right shoulder pain Tendinopathy of right shoulder Migraine Surgical History No significant past surgical history Social History Smoking Status: Current every day smoker alcohol intake: never current occupational status: other Travel in the last 8 weeks: None ROS Obtained: Yes All systems reviewed & no additional complaints except as documented Physical Exam General General appearance: alert Head Head exam: atraumatic and normocephalic Eye Eye exam: Present normal appearance, PERRL and EOMI ENT ENT exam: Present normal oropharynx and normal external ear exam Neck Neck exam: Present normal inspection and full ROM Chest Chest inspection: Present normal inspection and symmetric chest wall rise; Absent tenderness Respiratory Respiratory exam: Present normal lung sounds bilaterally; Absent respiratory distress Cardiovascular Cardiovascular exam: Present normal rhythm and tachycardia Abdominal Exam Abdominal exam: Present soft; Absent distention, tenderness or guarding Extremities Exam Extremities exam: Present normal inspection; Absent edema or joint swelling Back Exam Back exam: Present normal inspection; Absent tenderness Neurological Exam Neurological exam: Present alert and oriented X3; Absent motor sensory deficit Psychiatric Psychiatric exam: Present normal affect and normal mood Skin Skin exam: Present warm, dry and normal color Lymphatic Lymphatic Findings: no adenopathy Medical Decision Making Medical Records Medical records reviewed: Yes I reviewed the patient's medical records. Screening: Per USPSTF and CDC recommendations, given the prevalence of disease in our region, it is our hospital?s policy to screen for HIV and viral Hepatitis for all patients aged 18 and over and those with ongoing risk factors. Nino Inquiry Pt receiving controlled substance: No Nino was queried for this patient: No Vital Signs: 09/23/24 22:49 Temperature 98.6 F Temperature Source Oral Pulse Rate [Right Brachial] 132 H Respiratory Rate 17 Blood Pressure [Right Arm] 142/76 H Blood Pressure Mean [Right Arm] 98 Blood Pressure Source [Right Arm] Automatic Cuff Blood Pressure Position [Right Arm] Sitting 02 Sat by Pulse Oximetry 97 Oxygen Delivery Method Room Air Lab Data Lab results reviewed: Yes I reviewed the patient's lab results. Lab Results 09/23/24 23:18: SARS-CoV-2 (PCR) Not detected, Influenza A Untype (PCR) Not detected, Influenza Type B (PCR) Not detected Orders (Tests/Meds): ED MEDICATIONS Discontinued Medications Generic Name Dose Route Start Last Admin Trade Name Lizandroq PRN Reason Stop Dose Admin Acetaminophen 1,000 mg 09/23/24 23:20 09/23/24 23:34 Acetaminophen 500mg Tab PO 09/23/24 23:21 1,000 mg ONCE ONE Administration Ketorolac Tromethamine 30 mg 09/23/24 23:20 09/23/24 23:33 Ketorolac 30mg/Ml Vial IM 09/23/24 23:21 30 mg ONCE ONE Administration Prochlorperazine Edisylate 10 mg 09/23/24 23:20 09/23/24 23:33 Prochlorperazine 10mg/2ml Vial IM 09/23/24 23:21 10 mg ONCE ONE Administration ORDERS Category Date Time Status CXR 2 view (NOT portable) [XR chest 2V] Stat Exams 09/23/24 23:20 Completed Rapid PCR Covid and Flu A/B Stat Lab 09/23/24 23:18 Completed Tissue Perfus/Sepsis Re-Eval Sepsis Re-Evaluation Performed: Yes Date Performed: 09/24/24 Time Performed: 00:32 Medical Decision Narrative: 44-year-old male, denies any significant past medical history presents for 1 day of cough congestion fever and headache. History was obtained via interactive discussion with patient, family. On arrival, patient is afebrile, initially tachycardic to 130, quickly improved to 105. Normotensive, moving all extremities spontaneously. Full physical exam performed and significant for mild posterior oropharyngeal erythema without exudate or tonsillar swelling, clear lungs bilaterally. Normal neurologic exam. Differential includes but is not limited to URI, COVID, flu, pneumonia. Patient was given Tylenol, Toradol, Compazine for symptomatic management and correction of underlying abnormalities. Workup initiated including COVID flu swab, 2 view chest x-ray. On re-evaluation, patient heart rate continues to be improved. Patient reports significant symptomatic improvement, reports near complete resolution in headache. Laboratory workup independently interpreted by me and significant for negative COVID flu swab. Imaging independently interpreted by me and significant for clear lungs bilaterally without focal opacity. See radiology read for full review of final results. Blood work was considered, but deemed unnecessary due to history and exam. Given patient history, exam and workup, patient's presentation most likely represents viral URI. I had extensive and repeated discussion with patient regarding his presentation. Recommended he return if his symptoms worsen or do not improve, recommend follow-up with PCP otherwise. Patient discharged in stable condition Procedures Risk/Benefits of Procedure(s) Were Explained: Yes Critical Care Critical Care Time Critical Care Time: No
[2024-09-23] MEDS: KETOROLAC 30MG/ML VIAL 30 MG IM (23:33)
[2024-09-23] MEDS: PROCHLORPERAZINE 10MG/2ML VIAL 10 MG IM (23:33)
[2024-09-23] MEDS: ACETAMINOPHEN 500MG TAB 1000 MG PO (23:34)
[2024-09-23 23:40] LABS: Coronavirus 19, PCR Not Detected (NotDetected); Influenza A, PCR Not Detected (NotDetected); Influenza B, PCR Not Detected (NotDetected)
[2024-09-24 00:37] VITALS: BP 142/76; PULSE 99; RESP 17; TEMP 37; O2SAT 99
== END 2024-09-24 00:38 | disposition home or self-care (01) ==
PROVIDERS: Emergency Provider Emergency Medicine; PCP Nurse Practitioner Family
DX: J06.9 Acute upper respiratory infection, unspecified (principal); R05.9 Cough, unspecified; R09.81 Nasal congestion; R50.9 Fever, unspecified; R51.9 Headache, unspecified
CPT/HCPCS: 71046; 87636; 96372; 99283; J0780; J1885

== ENCOUNTER 2024-09-26 07:12 | Emergency (ER) | payer OTHER, SELFPAY ==
[2024-09-26 07:13] VITALS: BP 141/89; PULSE 119; RESP 18; TEMP 36.9; O2SAT 95; BMI 37.3
[2024-09-26] MEDS: predniSONE 20MG TAB 40 MG PO (07:46)
[2024-09-26] MEDS: LORATADINE 10MG TABLET 10 MG PO (07:46)
--- NOTE | 2024-09-26 07:49 | ED_ITS ---
Discharge Plan Disposition Patient Disposition: Home, Self-Care Condition: Good Prescriptions Prescriptions: New prednisone 20 mg tablet 40 mg PO DAILY 4 Days Qty: 8 0RF Rx Instructions: Please start taking this tomorrow 09/27/2024, as you were already given your first dose today 09/26/2024. fluticasone propionate [Flonase Allergy Relief] 50 mcg/actuation spray,suspension 2 spray intranasal DAILY Qty: 16 0RF Rx Instructions: administer into each nostril cetirizine [Zyrtec] 10 mg tablet 10 mg PO DAILY Qty: 30 1RF Referrals Follow up/Referrals: Kandi Felix [Primary Care Provider] - See instructions Activity Restrictions/Add. Instructions Additional Instructions/Restrictions: You were evaluated in the emergency department today. At this time, we feel your symptoms are related to a viral upper respiratory infection causing a mild COPD exacerbation. 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 You may take Tylenol and ibuprofen every 4-6 hours at home as needed for pain and/or fever. Expect that cough may linger for up to 6 weeks. Follow-up closely with your primary care provider for reassessment. Clinical Impressions Clinical Impression: Viral URI with cough, Acute exacerbation of chronic obstructive pulmonary disease Stand Alone Forms Stand Alone Forms: Work/School Release Instructions Patient Instructions: DI for Chronic Obstructive Pulmonary Disease, DI for Viral Upper Respiratory Infection -- Adult Print Language Print Language: Croatian Discharge ED Provider: Tatyana Mix General Adult HPI General Chief complaint: Upper Respiratory Infection Stated complaint: viral- fever, congestion, headache Time Seen by Provider: 09/26/24 07:23 Mode of Arrival: Ambulatory Source of Information: Patient Limitations: No Limitations Description of Symptoms (Recalled from ER Triage Doc. by RN): Complaint of cough, head congestion and bilateral ear pain. History of Present Illness HPI narrative: This patient is a 44-year-old male with a history of mild COPD presenting to the emergency department for evaluation with concern for persistent fever, cough, sore throat and generally feeling unwell for the last 5 days. Patient reports that he was seen here 09/23/2024 as well as by his PCP the next day and was diagnosed with viral upper respiratory infection. He notes he was given Mucinex by his PCP, but this is not helping with his symptoms. He continues to have cough and states that he is having difficulty sleeping because of the cough. He also notes that he has fullness in both of his ears that started today and it feels like they are full of fluid. No other concerns noted at this time. Family at home is also sick. Related Data Previous Rx's ?Medication ?Instructions ?Recorded cetirizine 10 mg tablet (Zyrtec) 10 mg PO DAILY #30 tabs 09/26/24 fluticasone propionate 50 2 spray intranasal DAILY #16 grams 09/26/24 mcg/actuation nasal spray,suspension (Flonase Allergy Relief) prednisone 20 mg tablet 40 mg (2 x 20 mg) PO DAILY 4 days 09/26/24 #8 tabs Allergies Allergy/AdvReac Type Severity Reaction Status Date / Time No Known Allergies Allergy Verified 09/23/24 23:23 [facility] Disclaimer: The information contained in this section may have been updated after the patient was seen, as this information can be updated by other users. Medical History Influenza due to influenza virus, type B Strep throat Right shoulder pain Tendinopathy of right shoulder Migraine Surgical History No significant past surgical history Social History Smoking Status: Never smoker alcohol intake: never current occupational status: other Travel in the last 8 weeks: None ROS Obtained: Yes All systems reviewed & no additional complaints except as documented Physical Exam General General appearance: alert, in no apparent distress and obese Head Head exam: atraumatic and normocephalic Eye Eye exam: Present normal appearance, PERRL and EOMI ENT ENT exam: Present normal exam, normal oropharynx, mucous membranes moist and normal external ear exam Neck Neck exam: Present normal inspection, full ROM and trachea midline; Absent tenderness Chest Chest inspection: Present normal inspection and symmetric chest wall rise; Absent tenderness Respiratory Respiratory exam: Present wheezes (Bilateral end expiratory wheezing noted); Absent respiratory distress, stridor, accessory muscle use or prolonged expiratory phase Cardiovascular Cardiovascular exam: Present regular rate and normal rhythm Abdominal Exam Abdominal exam: Present soft; Absent distention, tenderness or guarding Extremities Exam Extremities exam: Present normal inspection, full ROM and normal capillary refill; Absent tenderness or edema Back Exam Back exam: Present normal inspection and full ROM; Absent tenderness Neurological Exam Neurological exam: Present alert, oriented X3, CN II-XII intact and normal gait; Absent motor sensory deficit Psychiatric Psychiatric exam: Present normal affect and normal mood Skin Skin exam: Present warm and dry Medical Decision Making Medical Records Medical records reviewed: Yes I reviewed the patient's medical records. Screening: Per USPSTF and CDC recommendations, given the prevalence of disease in our region, it is our hospital?s policy to screen for HIV and viral Hepatitis for all patients aged 18 and over and those with ongoing risk factors. Nino Inquiry Pt receiving controlled substance: No Vital Signs: 09/26/24 07:13 Temperature 98.5 F Temperature Source Oral Pulse Rate [Radial] 119 H Respiratory Rate 18 Blood Pressure [Right Arm] 141/89 H Blood Pressure Mean [Right Arm] 106 Blood Pressure Source [Right Arm] Automatic Cuff Blood Pressure Position [Right Arm] Sitting 02 Sat by Pulse Oximetry 95 Oxygen Delivery Method Room Air Lab Data Lab results reviewed: Yes I reviewed the patient's lab results. Orders (Tests/Meds): ED MEDICATIONS Discontinued Medications Generic Name Dose Route Start Last Admin Trade Name Freq PRN Reason Stop Dose Admin Fluticasone Propionate 2 spray 09/26/24 07:36 Fluticasone Prop 50mcg Nasal [place] 16gm NS 09/26/24 07:37 ONCE ONE Loratadine 10 mg 09/26/24 07:36 09/26/24 07:46 Loratadine 10mg Tablet PO 09/26/24 07:37 10 mg ONCE ONE Administration Prednisone 40 mg 09/26/24 07:35 09/26/24 07:46 Prednisone 20mg Tab PO 09/26/24 07:36 40 mg ONCE ONE Administration ORDERS Category Date Time Status HIV (1&2) Antibody Rapid Stat Lab 09/26/24 07:24 Ordered Hep C Ab with Reflex to RNA Stat Lab 09/26/24 07:24 Ordered Medical Decision Narrative: In summary, this patient is a 44-year-old presenting to the Emergency Department for evaluation of fever, cough, congestion, shortness of breath, sore throat, and fullness in both of his ear. Family at home with similar symptoms. Differential diagnoses considered include but are not limited to viral syndrome, pharyngitis, pneumonia, COPD exacerbation, otitis. Ruling out the most morbid conditions drove assessment. It should be noted patient's history includes COPD which is not at goal therapy. This complicates all aspects of care by increasing patient's risk for morbidity. I reviewed patient's past medical records and noted evaluation here 4 days ago with concern for similar symptoms at which point he was diagnosed with a viral infection. His COVID and flu swabs were negative. Chest x-ray was obtained and was reassuring at that time. On exam, the patient is nontoxic-appearing with reassuring vital signs. He has mild faint end expiratory wheezing but has no increased work of breathing. 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 I feel he has mild COPD exacerbation and a low risk patient secondary to a viral upper respiratory infection. He also has serous ear effusions but no findings concerning for bacterial otitis. Will plan to treat with Flonase, Zyrtec, and prednisone. At this time based on reassuring history and exam, I feel the patient is appropriate for discharge home with prescriptions as above and instructions for close follow-up with primary care. Critical Care Critical Care Time Critical Care Time: No
[2024-09-26 08:24] VITALS: BP 136/86; PULSE 108; RESP 18; TEMP 36.9; O2SAT 96
== END 2024-09-26 08:33 | disposition home or self-care (01) ==
PROVIDERS: Emergency Provider Emergency Medicine; PCP Nurse Practitioner Family
DX: J06.9 Acute upper respiratory infection, unspecified (principal); R05.9 Cough, unspecified; J44.1 Chronic obstructive pulmonary disease with (acute) exacerbation
CPT/HCPCS: 99283